=== PATIENT | female | born 1945 | race Caucasian/White ===

== ENCOUNTER 2023-01-18 18:25 | Emergency (ER) | payer MEDICARE ==
[2023-01-18 18:41] LABS: BASOPHILS ABSOLUTE AUTO 0.06 K/uL (0.00-0.10); BASOPHILS PERCENT AUTO 0.8 % (0.1-1.3); EOSINOPHILS ABSOLUTE AUTO 0.61 K/uL (0.00-0.40); EOSINOPHILS PERCENT AUTO 8.5 % (0.0-5.4); HEMATOCRIT 30.4 % (34.3-46.0); HEMOGLOBIN 9.8 g/dL (11.2-15.5); IMMATURE GRAN ABSOLUTE AUTO 0.01 K/uL (0.00-0.23); IMMATURE GRAN PERCENT AUTO 0.1 % (0.0-0.7); LYMPHOCYTES ABSOLUTE AUTO 1.27 K/uL (0.8-3.3); LYMPHOCYTES PERCENT AUTO 17.7 % (11.4-47.7); MEAN CORPUSCULAR HEMOGLOBIN 30.4 pg (31.6-35.5); MEAN CORPUSCULAR HGB CONC 32.2 g/dL (31.6-35.5); MEAN CORPUSCULAR VOLUME 94.4 fL (81.4-99.0); MONOCYTES ABSOLUTE AUTO 0.96 K/uL (0.20-0.90); MONOCYTES PERCENT AUTO 13.4 % (3.3-12.6); NEUTROPHILS ABSOLUTE AUTO 4.26 K/uL (1.0-7.6); NEUTROPHILS PERCENT AUTO 59.5 % (40.0-78.1); PLATELET COUNT,PLT 306 K/uL (130-375); RED BLOOD CELL COUNT 3.22 M/uL (3.77-5.24); WHITE BLOOD CELL COUNT,WBC 7.2 K/uL (3.2-11.0)
[2023-01-18 18:57] LABS: BLOOD UREA NITROGEN,BUN 27 mg/dL (7-18); CARBON DIOXIDE,CO2 32 mmol/L (21-32); CHLORIDE,CL 102 mmol/L (100-108); CREATININE 0.9 mg/dL (0.6-1.0); ESTIMATED GFR 66 mL/min (>60); GLUCOSE RANDOM 146 mg/dL (74-106); POTASSIUM,K 4.2 mmol/L (3.6-5.2); SODIUM,NA 139 mmol/L (140-148)
[2023-01-18 18:58] LABS: ANION GAP 9.2 mmol/L (5.0-14.0)
[2023-01-18 19:03] LABS: PROTHROMBIN TIME 10.4 sec (9.2-10.6); PTT,PARTIAL THROMBOPLSTIN TIME 27.4 sec (21.8-27.3)
== END 2023-01-18 20:10 ==
LOC: JP.ED 18:25
DX: S09.90XA Unspecified injury of head, initial encounter (principal); H53.2 Diplopia; W01.198A Fall on same level from slipping, tripping and stumbling with subsequent striking against other object, initial encounter
CPT/HCPCS: 36415; 70450; 80048; 85025; 85610; 85730; 99285

== ENCOUNTER 2023-04-27 07:25 | Day surgery (SDC) | payer MEDICARE, MEDICAID ==
[2023-04-27] MEDS ORDERED: Sodium Chloride 0.9% 10 ML Syringe FLUSH PRN (07:45)
== END 2023-04-27 09:18 ==
LOC: JP.SDS 07:25
PROVIDERS: ATTEND Ophthalmology
DX: H26.9 Unspecified cataract (principal); I11.0 Hypertensive heart disease with heart failure; I50.9 Heart failure, unspecified; E78.5 Hyperlipidemia, unspecified; J44.9 Chronic obstructive pulmonary disease, unspecified; E03.9 Hypothyroidism, unspecified; F17.200 Nicotine dependence, unspecified, uncomplicated
CPT/HCPCS: 66984; J3490; V2632

== ENCOUNTER 2023-05-11 08:27 | Day surgery (SDC) | payer MEDICARE, MEDICAID ==
[2023-05-11] MEDS ORDERED: Sodium Chloride 0.9% 10 ML Syringe FLUSH PRN (09:30)
== END 2023-05-11 10:02 ==
LOC: JP.SDS 08:27
PROVIDERS: ATTEND Ophthalmology
DX: E11.36 Type 2 diabetes mellitus with diabetic cataract (principal); H26.9 Unspecified cataract; K21.9 Gastro-esophageal reflux disease without esophagitis; J45.909 Unspecified asthma, uncomplicated; E03.9 Hypothyroidism, unspecified; Z88.8 Allergy status to other drugs, medicaments and biological substances
CPT/HCPCS: J3490; V2632

== ENCOUNTER 2024-02-10 22:40 | Emergency (ER) | payer MEDICARE ==
[2024-02-10 23:04] LABS: BASOPHILS ABSOLUTE AUTO 0.06 K/uL (0.00-0.10); BASOPHILS PERCENT AUTO 0.8 % (0.1-1.3); EOSINOPHILS ABSOLUTE AUTO 1.07 K/uL (0.00-0.40); EOSINOPHILS PERCENT AUTO 13.8 % (0.0-5.4); HEMATOCRIT 33.4 % (34.3-46.0); HEMOGLOBIN 10.9 g/dL (11.2-15.5); IMMATURE GRAN PERCENT AUTO 0.1 % (0.0-0.7); LYMPHOCYTES ABSOLUTE AUTO 1.67 K/uL (0.8-3.3); LYMPHOCYTES PERCENT AUTO 21.6 % (11.4-47.7); MEAN CORPUSCULAR HEMOGLOBIN 29.9 pg (31.6-35.5); MEAN CORPUSCULAR HGB CONC 32.6 g/dL (31.6-35.5); MEAN CORPUSCULAR VOLUME 91.5 fL (81.4-99.0); MONOCYTES ABSOLUTE AUTO 0.78 K/uL (0.20-0.90); MONOCYTES PERCENT AUTO 10.1 % (3.3-12.6); NEUTROPHILS ABSOLUTE AUTO 4.14 K/uL (1.0-7.6); NEUTROPHILS PERCENT AUTO 53.6 % (40.0-78.1); PLATELET COUNT,PLT 285 K/uL (130-375); RED BLOOD CELL COUNT 3.65 M/uL (3.77-5.24); WHITE BLOOD CELL COUNT,WBC 7.7 K/uL (3.2-11.0)
[2024-02-10 23:24] LABS: A/G RATIO 0.7 (1.2-2.2); ALANINE AMINOTRANSFERASE,ALT 9 U/L (12-78); ALBUMIN 2.9 g/dL (3.4-5.0); ALKALINE PHOSPHATASE 107 U/L (46-116); ASPARTATE AMNIOTRANSFERASE,AST 9 U/L (15-37); BILIRUBIN TOTAL 0.3 mg/dL (0.2-1.0); BLOOD UREA NITROGEN,BUN 55 mg/dL (7-18); CALCIUM 9.1 mg/dL (8.5-10.1); CARBON DIOXIDE,CO2 36 mmol/L (21-32); CHLORIDE,CL 104 mmol/L (100-108); CREATININE 1.5 mg/dL (0.6-1.0); EST CRCL DRUG DOSING (CG) 22.56 mL/min; ESTIMATED GFR 36 mL/min (>60); GLUCOSE RANDOM 178 mg/dL (74-106); POTASSIUM,K 3.8 mmol/L (3.6-5.2); PROTEIN TOTAL,TP 7.1 g/dL (6.4-8.2); SODIUM,NA 145 mmol/L (140-148)
[2024-02-10 23:25] LABS: ANION GAP 8.8 mmol/L (5.0-14.0); IMMATURE GRAN ABSOLUTE AUTO 0.01 K/uL (0.00-0.23)
[2024-02-10 23:27] LABS: APPEARANCE,URINE CLEAR (CLEAR); BILIRUBIN,URINE NEGATIVE (NEGATIVE); COLOR,URINE YELLOW (YELLOW); GLUCOSE,URINE NEGATIVE (NEGATIVE); KETONES,URINE NEGATIVE (NEGATIVE); LEUKOCYTE ESTERASE,URINE NEGATIVE (NEGATIVE); NITRITE,URINE NEGATIVE (NEGATIVE); OCCULT BLOOD,URINE NEGATIVE (NEGATIVE); PH,URINE 5.5 (5.0-8.0); PROTEIN,URINE NEGATIVE (NEGATIVE); UROBILINOGEN,URINE 0.2 EU/dL (0.2-1.0)
[2024-02-10 23:35] LABS: AMORPHOUS SEDIMENT,URINE NOT SEEN; BACTERIA,URINE FEW; EPITHELIAL CELLS,URINE FEW; MUCUS,URINE NOT SEEN; RBC,URINE 0-5 (0-5); WBC,URINE 0-5 (0-5)
[2024-02-11] MEDS: Sodium Chloride 0.9% 80 ML IV ONE (00:37)
[2024-02-11] MEDS: Sodium Chloride 0.9% 10 ML Syringe FLUSH PRN (00:37)
[2024-02-11] MEDS: Iopamidol 612 MG/ML 100 ML Bottle IV PRN (00:37)
[2024-02-11] MEDS: Doxycycline 100 MG Cap PO ONE (06:30)
[2024-02-11] MEDS: Amoxicillin/Clavulanate K 875-125 MG Tab PO ONE (06:30)
== END 2024-02-11 08:25 | disposition home or self-care (01) ==
LOC: JP.ED 22:40
DX: J18.9 Pneumonia, unspecified organism (principal); I10 Essential (primary) hypertension; E78.00 Pure hypercholesterolemia, unspecified; E11.9 Type 2 diabetes mellitus without complications; Z90.49 Acquired absence of other specified parts of digestive tract; Z79.899 Other long term (current) drug therapy; Z79.890 Hormone replacement therapy; Z88.8 Allergy status to other drugs, medicaments and biological substances
CPT/HCPCS: 36415; 70450; 71260; 72125; 74177; 76377; 80053; 81001; 83605; 83690; 85025; 99285; A9270; J3490; Q9967

== ENCOUNTER 2024-02-23 15:52 | Emergency (ER) | payer MEDICARE ==
[2024-02-23 17:28] LABS: BASOPHILS ABSOLUTE AUTO 0.08 K/uL (0.00-0.10); BASOPHILS PERCENT AUTO 0.9 % (0.1-1.3); EOSINOPHILS ABSOLUTE AUTO 2.11 K/uL (0.00-0.40); EOSINOPHILS PERCENT AUTO 24.1 % (0.0-5.4); HEMATOCRIT 34.8 % (34.3-46.0); HEMOGLOBIN 11.2 g/dL (11.2-15.5); IMMATURE GRAN PERCENT AUTO 0.2 % (0.0-0.7); LYMPHOCYTES ABSOLUTE AUTO 1.84 K/uL (0.8-3.3); MEAN CORPUSCULAR HEMOGLOBIN 29.2 pg (31.6-35.5); MEAN CORPUSCULAR HGB CONC 32.2 g/dL (31.6-35.5); MEAN CORPUSCULAR VOLUME 90.9 fL (81.4-99.0); MONOCYTES ABSOLUTE AUTO 0.84 K/uL (0.20-0.90); MONOCYTES PERCENT AUTO 9.6 % (3.3-12.6); NEUTROPHILS ABSOLUTE AUTO 3.87 K/uL (1.0-7.6); NEUTROPHILS PERCENT AUTO 44.2 % (40.0-78.1); PLATELET COUNT,PLT 307 K/uL (130-375); RED BLOOD CELL COUNT 3.83 M/uL (3.77-5.24); WHITE BLOOD CELL COUNT,WBC 8.8 K/uL (3.2-11.0)
[2024-02-23 17:31] LABS: IMMATURE GRAN ABSOLUTE AUTO 0.02 K/uL (0.00-0.23)
[2024-02-23 18:00] LABS: A/G RATIO 0.6 (1.2-2.2); ALANINE AMINOTRANSFERASE,ALT 17 U/L (12-78); ALBUMIN 2.9 g/dL (3.4-5.0); ALKALINE PHOSPHATASE 142 U/L (46-116); ASPARTATE AMNIOTRANSFERASE,AST 26 U/L (15-37); BILIRUBIN TOTAL 0.3 mg/dL (0.2-1.0); BLOOD UREA NITROGEN,BUN 63 mg/dL (7-18); CALCIUM 9.8 mg/dL (8.5-10.1); CARBON DIOXIDE,CO2 38 mmol/L (21-32); CHLORIDE,CL 103 mmol/L (100-108); CREATININE 1.6 mg/dL (0.6-1.0); EST CRCL DRUG DOSING (CG) 21.15 mL/min; ESTIMATED GFR 33 mL/min (>60); GLUCOSE RANDOM 168 mg/dL (74-106); POTASSIUM,K 4.1 mmol/L (3.6-5.2); PROTEIN TOTAL,TP 7.5 g/dL (6.4-8.2); SODIUM,NA 145 mmol/L (140-148)
[2024-02-23 18:03] LABS: ANION GAP 8.1 mmol/L (5.0-14.0)
== END 2024-02-23 19:51 ==
LOC: JP.ED 15:52
DX: R89.2 Abnormal level of other drugs, medicaments and biological substances in specimens from other organs, systems and tissues (principal); I10 Essential (primary) hypertension; E78.00 Pure hypercholesterolemia, unspecified; E11.9 Type 2 diabetes mellitus without complications; Z90.49 Acquired absence of other specified parts of digestive tract; Z79.899 Other long term (current) drug therapy; Z88.8 Allergy status to other drugs, medicaments and biological substances
CPT/HCPCS: 36415; 80053; 80177; 83605; 83880; 85025; 99285

== ENCOUNTER 2024-03-04 01:04 | Emergency (ER) | payer MEDICARE ==
[2024-03-04 01:44] LABS: BASOPHILS PERCENT AUTO 1.1 % (0.1-1.3); EOSINOPHILS ABSOLUTE AUTO 1.55 K/uL (0.00-0.40); EOSINOPHILS PERCENT AUTO 16.4 % (0.0-5.4); HEMATOCRIT 32.2 % (34.3-46.0); HEMOGLOBIN 10.5 g/dL (11.2-15.5); IMMATURE GRAN ABSOLUTE AUTO 0.03 K/uL (0.00-0.23); IMMATURE GRAN PERCENT AUTO 0.3 % (0.0-0.7); LYMPHOCYTES ABSOLUTE AUTO 1.47 K/uL (0.8-3.3); LYMPHOCYTES PERCENT AUTO 15.6 % (11.4-47.7); MEAN CORPUSCULAR HEMOGLOBIN 29.7 pg (31.6-35.5); MEAN CORPUSCULAR HGB CONC 32.6 g/dL (31.6-35.5); MONOCYTES ABSOLUTE AUTO 0.83 K/uL (0.20-0.90); MONOCYTES PERCENT AUTO 8.8 % (3.3-12.6); NEUTROPHILS ABSOLUTE AUTO 5.46 K/uL (1.0-7.6); NEUTROPHILS PERCENT AUTO 57.8 % (40.0-78.1); PLATELET COUNT,PLT 229 K/uL (130-375); RED BLOOD CELL COUNT 3.54 M/uL (3.77-5.24); WHITE BLOOD CELL COUNT,WBC 9.4 K/uL (3.2-11.0)
[2024-03-04] MEDS: QUEtiapine 25 MG Tab PO ONE ×2 (01:53→03:20)
[2024-03-04 02:00] LABS: BLOOD UREA NITROGEN,BUN 30 mg/dL (7-18); CALCIUM 9.5 mg/dL (8.5-10.1); CARBON DIOXIDE,CO2 30 mmol/L (21-32); CHLORIDE,CL 100 mmol/L (100-108); ESTIMATED GFR 58 mL/min (>60); GLUCOSE RANDOM 192 mg/dL (74-106); POTASSIUM,K 4.3 mmol/L (3.6-5.2); SODIUM,NA 138 mmol/L (140-148)
[2024-03-04 02:04] LABS: ANION GAP 12.3 mmol/L (5.0-14.0)
== END 2024-03-04 07:40 | disposition home or self-care (01) ==
LOC: JP.ED 01:04
DX: G30.9 Alzheimer's disease, unspecified (principal); F02.80 Dementia in other diseases classified elsewhere, unspecified severity, without behavioral disturbance, psychotic disturbance, mood disturbance, and anxiety; I10 Essential (primary) hypertension; E78.00 Pure hypercholesterolemia, unspecified; J44.9 Chronic obstructive pulmonary disease, unspecified; E11.9 Type 2 diabetes mellitus without complications; Z90.49 Acquired absence of other specified parts of digestive tract; Z79.899 Other long term (current) drug therapy; Z79.51 Long term (current) use of inhaled steroids; Z79.890 Hormone replacement therapy; Z88.8 Allergy status to other drugs, medicaments and biological substances
CPT/HCPCS: 36415; 80048; 85025; 99284; A9270

== ENCOUNTER 2024-03-11 17:27 | Emergency (ER) | payer MEDICARE ==
[2024-03-11 20:01] LABS: A/G RATIO 0.7 (1.2-2.2); ALANINE AMINOTRANSFERASE,ALT 14 U/L (12-78); ALBUMIN 2.9 g/dL (3.4-5.0); ALKALINE PHOSPHATASE 114 U/L (46-116); ASPARTATE AMNIOTRANSFERASE,AST 19 U/L (15-37); BILIRUBIN TOTAL 0.3 mg/dL (0.2-1.0); BLOOD UREA NITROGEN,BUN 52 mg/dL (7-18); CALCIUM 9.7 mg/dL (8.5-10.1); CARBON DIOXIDE,CO2 35 mmol/L (21-32); CHLORIDE,CL 100 mmol/L (100-108); CREATININE 1.6 mg/dL (0.6-1.0); EST CRCL DRUG DOSING (CG) 21.15 mL/min; ESTIMATED GFR 33 mL/min (>60); GLUCOSE RANDOM 165 mg/dL (74-106); POTASSIUM,K 5.6 mmol/L (3.6-5.2); SODIUM,NA 137 mmol/L (140-148)
[2024-03-11 20:03] LABS: ANION GAP 7.6 mmol/L (5.0-14.0)
[2024-03-13 18:05] LABS: LAMOTRIGINE 19.7 ug/mL (3.0-15.0)
[2024-03-13 18:07] LABS: KEPPRA (LEVETIRACETAM) 46 ug/mL (10-40)
== END 2024-03-11 21:07 ==
LOC: JP.ED 17:27
DX: S09.90XA Unspecified injury of head, initial encounter (principal); I10 Essential (primary) hypertension; E78.00 Pure hypercholesterolemia, unspecified; J44.9 Chronic obstructive pulmonary disease, unspecified; E11.9 Type 2 diabetes mellitus without complications; Z90.49 Acquired absence of other specified parts of digestive tract; Z79.899 Other long term (current) drug therapy; Z88.8 Allergy status to other drugs, medicaments and biological substances
CPT/HCPCS: 36415; 80053; 80175; 80177; 99283

== ENCOUNTER 2024-03-14 20:53 | Emergency (ER) | payer MEDICARE ==
[2024-03-14] MEDS: LORazepam 1 MG Tab PO ONE (22:53)
== END 2024-03-14 23:08 | disposition home or self-care (01) ==
LOC: JP.ED 20:53
DX: R45.1 Restlessness and agitation (principal); I10 Essential (primary) hypertension; E78.00 Pure hypercholesterolemia, unspecified; J44.9 Chronic obstructive pulmonary disease, unspecified; E11.9 Type 2 diabetes mellitus without complications; Z90.49 Acquired absence of other specified parts of digestive tract; Z79.899 Other long term (current) drug therapy; Z79.51 Long term (current) use of inhaled steroids; Z79.890 Hormone replacement therapy; Z88.8 Allergy status to other drugs, medicaments and biological substances
CPT/HCPCS: 99284; A9270

== ENCOUNTER 2024-03-15 12:08 | Emergency (ER) | payer MEDICARE ==
[2024-03-15] MEDS: QUEtiapine 25 MG Tab PO ONE (13:33)
[2024-03-15 13:38] LABS: BASOPHILS ABSOLUTE AUTO 0.05 K/uL (0.00-0.10); BASOPHILS PERCENT AUTO 0.5 % (0.1-1.3); EOSINOPHILS ABSOLUTE AUTO 2.17 K/uL (0.00-0.40); EOSINOPHILS PERCENT AUTO 19.7 % (0.0-5.4); HEMATOCRIT 34.5 % (34.3-46.0); HEMOGLOBIN 11.5 g/dL (11.2-15.5); IMMATURE GRAN ABSOLUTE AUTO 0.03 K/uL (0.00-0.23); IMMATURE GRAN PERCENT AUTO 0.3 % (0.0-0.7); LYMPHOCYTES ABSOLUTE AUTO 1.36 K/uL (0.8-3.3); LYMPHOCYTES PERCENT AUTO 12.4 % (11.4-47.7); MEAN CORPUSCULAR HGB CONC 33.3 g/dL (31.6-35.5); MEAN CORPUSCULAR VOLUME 90.1 fL (81.4-99.0); MONOCYTES ABSOLUTE AUTO 0.64 K/uL (0.20-0.90); MONOCYTES PERCENT AUTO 5.8 % (3.3-12.6); NEUTROPHILS ABSOLUTE AUTO 6.76 K/uL (1.0-7.6); NEUTROPHILS PERCENT AUTO 61.3 % (40.0-78.1); PLATELET COUNT,PLT 463 K/uL (130-375); RED BLOOD CELL COUNT 3.83 M/uL (3.77-5.24)
[2024-03-15 13:59] LABS: A/G RATIO 0.7 (1.2-2.2); ALANINE AMINOTRANSFERASE,ALT 14 U/L (12-78); ALBUMIN 3.3 g/dL (3.4-5.0); ALKALINE PHOSPHATASE 136 U/L (46-116); ASPARTATE AMNIOTRANSFERASE,AST 22 U/L (15-37); BILIRUBIN TOTAL 0.4 mg/dL (0.2-1.0); BLOOD UREA NITROGEN,BUN 59 mg/dL (7-18); CALCIUM 10.2 mg/dL (8.5-10.1); CARBON DIOXIDE,CO2 35 mmol/L (21-32); CHLORIDE,CL 96 mmol/L (100-108); CREATININE 1.9 mg/dL (0.6-1.0); ESTIMATED GFR 27 mL/min (>60); GLUCOSE RANDOM 182 mg/dL (74-106); PROTEIN TOTAL,TP 8.1 g/dL (6.4-8.2); SODIUM,NA 136 mmol/L (140-148)
[2024-03-15] MEDS: Haloperidol Lactate 5 MG/ML SDV IM ONE ×3 (14:09→18:14)
[2024-03-15 15:48] LABS: APPEARANCE,URINE CLEAR (CLEAR); BILIRUBIN,URINE NEGATIVE (NEGATIVE); COLOR,URINE YELLOW (YELLOW); GLUCOSE,URINE NEGATIVE (NEGATIVE); KETONES,URINE NEGATIVE (NEGATIVE); LEUKOCYTE ESTERASE,URINE NEGATIVE (NEGATIVE); NITRITE,URINE NEGATIVE (NEGATIVE); OCCULT BLOOD,URINE NEGATIVE (NEGATIVE); PROTEIN,URINE NEGATIVE (NEGATIVE); UROBILINOGEN,URINE 0.2 EU/dL (0.2-1.0)
[2024-03-15 15:59] LABS: AMORPHOUS SEDIMENT,URINE MODERATE; BACTERIA,URINE NOT SEEN; EPITHELIAL CELLS,URINE RARE; MUCUS,URINE NOT SEEN; RBC,URINE 0-5 (0-5); WBC,URINE 0-5 (0-5)
[2024-03-15] MEDS: OLANZapine 10 MG Vial IM ONE (22:29)
[2024-03-16] MEDS: OLANZapine 10 MG Vial ONE (05:53)
[2024-03-16] MEDS: QUEtiapine 25 MG Tab PO ONE ×2 (14:14→14:30)
[2024-03-16] MEDS: levETIRAcetam 250 MG Tab PO ONE (14:30)
[2024-03-16] MEDS: levETIRAcetam 250 MG Tab PO SCH (14:48)
[2024-03-16] MEDS: Acetaminophen 325 MG Tab PO ONE (16:21)
[2024-03-16] MEDS: Melatonin 3 MG Tab PO PRN (22:48)
[2024-03-17] MEDS: Levothyroxine 112 MCG Tab PO ONE (00:30)
[2024-03-17] MEDS: Levothyroxine 112 MCG Tab PO SCH (08:10)
[2024-03-17] MEDS: QUEtiapine 25 MG Tab PO SCH (13:05)
[2024-03-18] MEDS: Cholecalciferol (Vitamin D3) 25 MCG Tab PO SCH (17:24)
[2024-03-18] MEDS: Folic Acid 1 MG Tab PO SCH (17:24)
[2024-03-18] MEDS: Cyanocobalamin (Vitamin B12) 1,000 MCG Tab PO SCH (21:38)
[2024-03-18] MEDS: QUEtiapine 25 MG Tab PO SCH (21:38)
[2024-03-18] MEDS: Vitamin B6-pyridOXINE 50 MG Tab PO SCH (21:38)
[2024-03-19] MEDS: Acetaminophen Soln 650 MG/20.3 ML UD Cup PO ONE (15:07)
[2024-03-19 17:54] LABS: KEPPRA (LEVETIRACETAM) 25 ug/mL (10-40)
[2024-03-20] MEDS: Acetaminophen 325 MG Tab PO ONE (15:10)
[2024-03-21] MEDS: LORazepam 0.5 MG Tab PO ONE (03:34)
[2024-03-21] MEDS: Acetaminophen 325 MG Tab PO ONE (09:11)
== END 2024-03-21 14:21 | disposition hospice, home (50) ==
LOC: JP.ED 12:08
DX: F03.90 Unspecified dementia, unspecified severity, without behavioral disturbance, psychotic disturbance, mood disturbance, and anxiety (principal); I10 Essential (primary) hypertension; J44.9 Chronic obstructive pulmonary disease, unspecified; E11.9 Type 2 diabetes mellitus without complications; Z90.49 Acquired absence of other specified parts of digestive tract; Z91.148 Patient's other noncompliance with medication regimen for other reason; Z79.890 Hormone replacement therapy; Z79.899 Other long term (current) drug therapy; Z88.8 Allergy status to other drugs, medicaments and biological substances
CPT/HCPCS: 36415; 80053; 80177; 81001; 84443; 85025; 96372; 99285; A9270; J1630; J2405; U0002